=== PATIENT | male | born 1960 | race Caucasian/White ===

== ENCOUNTER 2023-10-08 06:07 | Day surgery (SDC) | payer OTHER, SELFPAY ==
[2023-09-25 10:00] LABS: Hematocrit 42.5 % (39.0-52.0); Mean Corp Hgb Conc. 35.3 g/dL (33.0-37.0); Mean Corpuscular Hgb 30.1 pg (27.0-31.0); Mean Corpuscular Volume 85.2 fL (80.0-94.0); Mean Platelet Volume 11.1 fL (7.4-10.4); Platelet Count 192 10^3/uL (130-400); Red Blood Cell Count 4.99 10^6/uL (4.70-6.10); Red Cell Dist. Width 12.3 % (11.5-14.5); White Blood Cell Count 5.4 10^3/uL (4.8-10.8)
[2023-09-25 10:36] LABS: Blood Urea Nitrogen 15 mg/dl (9-20); Calcium 9.4 mg/dl (8.4-10.2); Carbon Dioxide 30 mmol/L (22-30); Chloride 104 mmol/L (98-107); Glucose 97 mg/dl (70-99); Potassium 4.7 mmol/L (3.5-5.1); Sodium 137 mmol/L (135-145); eGFR > 60.00
[2023-09-25 12:35] VITALS: BMI 33.5
[2023-10-08] VITALS (10 sets, daily range): BP systolic 124–150; BP diastolic 75–91; BMI 33.5
[2023-10-08] MEDS: NORMOSOL-R 1000 IV (06:56)
[2023-10-08] MEDS: VANCOCIN 300 ML IV (06:56)
[2023-10-08] MEDS: VANCOCIN 300 MG IV (06:56)
[2023-10-08] MEDS: TYLENOL 1000 MG PO (06:57)
--- NOTE | 2023-10-08 06:59 | HP.FOC2 ---
Focused History & Physical
Chief Complaint
HPI:
Chief Complaint: Left inguinal hernia
HPI / Indication for Planned Procedure: 63-year-old male recently seen in outpatient surgical evaluation secondary to a 1 year history of intermittent left inguinal swelling. Examination confirmed the presence of a reducible left inguinal hernia.
Presents today for operative correction.
Relevant Past Medical History: Other (History of CLL, asthma, GERD )
Relevant Social History: Negative
Relevant Family History: Negative
Relevant Past Surgical History: Positive for (Lap appendectomy, varicocele)
Review of Systems
Review of Pertinent Systems: All Systems Negative
Medication
See Medication form for detailed medications: Yes
Medication List (including Herbals & OTC):
albuterol sulfate 90 mcg/actuation aerosol inhaler 2 puff inhalation Q6H PRN sob 10/04/23
budesonide-formoterol HFA 80 mcg-4.5 mcg/actuation aerosol inhaler (Symbicort) 1 puff inhalation BID 10/04/23
fluticasone propionate 50 mcg/actuation nasal spray,suspension (Flonase Allergy Relief) 1 spray intranasal PRN PRN nasal congestion 10/04/23
immune glob,gamm(IgG) 10 %-pro-IgA 0 to 50 mcg/mL intravenous solution (Privigen) 5 g IV MONTHLY 10/04/23
multivitamin 1 tab PO DAILY 10/04/23
omeprazole 20 mg capsule,delayed release 20 mg PO PRN PRN GERD 10/04/23
Medications Reviewed: Yes
Allergies and Reactions
Patient has Allergies: Yes
Noted Allergies and Reactions:
Allergy/AdvReac Type Severity Reaction Status Date / Time
amoxicillin Allergy rash, Verified 10/08/23 06:45
joint pain
cefdinir Allergy rash, Verified 10/08/23 06:45
joint pain
Cephalosporins Allergy rash, Verified 10/08/23 06:45
joint pain
Pertinent Physical Exam
All Other Systems: Negative
Head/Neck: Normal
Lungs: Normal
Heart: Normal
Abdomen: Other (Left inguinal hernia)
Extremities: Normal
Neurological: Normal
Diagnosis / Assessment
63-year-old male presenting for scheduled operative correction symptomatic left inguinal hernia
Plan / Procedure
Robotic assisted laparoscopic repair left inguinal hernia with mesh
Anesthesia/Sedation to be done by Anesthesia Provider: Yes
--- NOTE | 2023-10-08 07:01 | W.SUR.PREOP ---
Pre-Operative Surgical Note
-
I have examined this patient prior to the performance of the scheduled procedure.
The patient's condition is unchanged from the time of the current History and
Physical and the patient is able to undergo the scheduled procedure.
--- NOTE | 2023-10-08 08:44 | W.IMMPOSTOP ---
Addendum entered and electronically signed by Jb Rick MD 10/08/23 08:52:
#[id number]
Original Note:
Surgical Immed Post Op Note
-
Primary Surgeon: Prabhjot
Assisting Surgeon: Briana TAYLOR
Pre-op Diagnosis: LIH
Post-op Diagnosis: LIH - indirect
Procedure Performed: RAL BRYAN repair LIH with mesh; 3d max lg, mid
Anesthesia Type: GETA + 0.25% Marcaine
Specimen / Cultures: none
Estimated Blood Loss: 4mL
Complications: none immediate
Operative Findings: left indirect inguinal hernia. small lipoma excised. 3d max large mid wt mesh repair.
== END 2023-10-08 10:50 | disposition home or self-care (01) ==
LOC: SDS 06:07
PROVIDERS: ATTENDING PHYSICIAN Surgery; FAMILY PHYSICIAN Internal Medicine; OTHER PHYSICIAN Internal Medicine Hematology & Oncology
DX: K40.90 Unilateral inguinal hernia, without obstruction or gangrene, not specified as recurrent (principal)
CPT/HCPCS: 49650; 36415; 80048; 85027; 93005; C1781